=== PATIENT | male | born 1995 | race African-American/Black ===

== ENCOUNTER → 2023-08-10 | Outpatient (CLI) | payer OTHER | END | disposition home or self-care (01) | LOC: RADMN 13:49 | PROVIDERS: ATTEND Chiropractor | DX: M19.071 Primary osteoarthritis, right ankle and foot (principal); M19.072 Primary osteoarthritis, left ankle and foot; M79.89 Other specified soft tissue disorders | CPT/HCPCS: 72040; 72100; 73030-TC; 73562-TC; 73620-TC ==